=== PATIENT | female | born 2000 | race Caucasian/White ===

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

== ENCOUNTER → 2024-04-27 | Outpatient (CLI) | payer OTHER ==
--- NOTE | 2024-04-27 12:31 | US ---
EXAMINATION TYPE: US abdomen complete DATE OF EXAM: 04/27/2024 COMPARISON: NONE CLINICAL INDICATION: Female, 23 years old with history of R10.11 RIGHT UPPER QUADRANT PAIN; Pain TECHNIQUE: Multiple sonographic images of the abdomen are obtained. FINDINGS: EXAM MEASUREMENTS: Liver Length: 20.4 cm Gallbladder Wall: 0.2 cm CBD: 0.3 cm Spleen: 9.6 cm Right Kidney: 10.4 x 4.7 x 5.1 cm Left Kidney: 9.7 x 5.4 x 5.0 cm OBSERVER ELECTRICAL PROSPECTING NOTES: Pancreas: wnl, tail obscured by overlying bowel gas Liver: Enlarged, heterogeneous, hypoechoic area at kristan= 3.3 x 1.7 x 3.0 cm Gallbladder: wnl Evidence for sonographic Scott's sign: No CBD: wnl Spleen: wnl Right Kidney: wnl Left Kidney: wnl Upper IVC: wnl Abd Aorta: wnl The liver is increased echotexture area of lower echogenicity near the kristan hepatis is present likel y representing focal fatty sparing.. The intrahepatic portion of the IVC and proximal abdominal aort a are within normal limits. There is no evidence of cholelithiasis. Common bile duct is unremarkabl e. The visualized portions of the pancreas are homogenous. The spleen is unremarkable. Kidneys are symmetric and free of hydronephrosis. No renal lesions are seen. IMPRESSION: No evidence for acute process. Hepatic steatosis with fatty sparing.
== END | disposition home or self-care (01) ==
LOC: RADUSWWP 11:15
PROVIDERS: ATTEND Family Medicine
DX: K76.0 Fatty (change of) liver, not elsewhere classified (principal)
CPT/HCPCS: 76700